=== PATIENT | male | born 1955 | race Caucasian/White ===

== ENCOUNTER → 2022-01-09 09:09 | Outpatient (BNVA) | payer MEDICARE, SELFPAY | PROVIDERS: Family Provider Family Medicine; Visit Provider Family Medicine | DX: M10.9 Gout, unspecified (principal); I10 Essential (primary) hypertension; E78.5 Hyperlipidemia, unspecified; E53.8 Deficiency of other specified B group vitamins; E11.9 Type 2 diabetes mellitus without complications; E03.8 Other specified hypothyroidism | CPT/HCPCS: 80053; 80061; 82607; 83036; 83721; 84443; 84550; 85025 ==

== ENCOUNTER → 2022-05-08 09:05 | Outpatient (BNVA) | payer OTHER, MEDICARE, SELFPAY | PROVIDERS: Family Provider Family Medicine; PCP Family Medicine; Visit Provider Family Medicine | DX: E78.5 Hyperlipidemia, unspecified (principal); M10.9 Gout, unspecified; I10 Essential (primary) hypertension; I25.10 Atherosclerotic heart disease of native coronary artery without angina pectoris; E11.9 Type 2 diabetes mellitus without complications; G62.9 Polyneuropathy, unspecified; L40.9 Psoriasis, unspecified; M19.90 Unspecified osteoarthritis, unspecified site; F32.A Depression, unspecified | CPT/HCPCS: 80053; 83036; 84550; 85025 ==

== ENCOUNTER → 2022-07-04 09:32 | Outpatient (BNVA) | payer OTHER, MEDICARE, SELFPAY | PROVIDERS: Family Provider Family Medicine; PCP Family Medicine; Visit Provider Family Medicine | DX: D75.1 Secondary polycythemia (principal); E78.5 Hyperlipidemia, unspecified; F32.A Depression, unspecified; M10.9 Gout, unspecified; I10 Essential (primary) hypertension; E11.9 Type 2 diabetes mellitus without complications; E61.1 Iron deficiency | CPT/HCPCS: 82728; 83540 ==

== ENCOUNTER → 2022-08-14 09:48 | Day surgery (SDC) | payer OTHER, MEDICARE, SELFPAY ==
[2022-08-14 10:10] VITALS: BMI 25.7
[2022-08-14 10:17] VITALS: BP 154/88; PULSE 82; RESP 18; TEMP 36.4; O2SAT 98
[2022-08-14 10:20] LABS: Hematocrit 46.2 % (42.0-52.0); Hemoglobin 16.5 g/dL (11.7-16.6)
[2022-08-14 10:43] VITALS: BP 144/88; PULSE 67; RESP 18; O2SAT 97
--- NOTE | 2022-08-14 10:46 | PC.NURSE ---
Pt to GI infusions for Therapeutic phlebotomy. Hg 16.5 and Hct 46.2. Phlebotomy drawn as ordered. Pt tolerated well. No reaction noted.
== END ==
PROVIDERS: PCP Family Medicine; Visit Provider Family Medicine
DX: E83.119 Hemochromatosis, unspecified (principal); D75.1 Secondary polycythemia
CPT/HCPCS: 36415; 85014; 85018; 99195

== ENCOUNTER → 2022-08-21 10:40 | Day surgery (SDC) | payer OTHER, MEDICARE, SELFPAY ==
[2022-08-21 10:57] VITALS: BP 158/102; PULSE 72; RESP 18; TEMP 36.1; O2SAT 98
[2022-08-21 10:57] LABS: Hematocrit 43.8 % (42.0-52.0); Hemoglobin 15.5 g/dL (11.7-16.6)
--- NOTE | 2022-08-21 11:25 | PC.NURSE ---
Pt Hg 15.5 and Hct 43.6 today. Therapeutic phlebotomy drawn as ordered. Pt tolerated well.
[2022-08-21 11:43] VITALS: BP 126/80; PULSE 70; RESP 18; O2SAT 98
== END ==
LOC: GILAB 10:41
PROVIDERS: PCP Family Medicine; Visit Provider Family Medicine
DX: E83.119 Hemochromatosis, unspecified (principal)
CPT/HCPCS: 36415; 85014; 85018; 99195

== ENCOUNTER → 2022-08-28 09:44 | Day surgery (SDC) | payer OTHER, MEDICARE, SELFPAY ==
[2022-08-28 10:14] LABS: Hematocrit 42.1 % (42.0-52.0); Hemoglobin 15.1 g/dL (11.7-16.6)
--- NOTE | 2022-08-28 10:20 | PC.NURSE ---
Pt to GI infusions for Therapeutic Phlebotomy. Hg 15.1 and Hct 42.1 today. Phlebotomy drawn as ordered. Pt tolerated well.
[2022-08-28 10:59] VITALS: BP 125/69; PULSE 69; RESP 18; TEMP 36.2; O2SAT 99
== END ==
LOC: GILAB 09:51
PROVIDERS: PCP Family Medicine; Visit Provider Family Medicine
DX: E83.119 Hemochromatosis, unspecified (principal); D75.1 Secondary polycythemia
CPT/HCPCS: 36415; 85014; 85018; 99195

== ENCOUNTER → 2022-09-04 10:47 | Day surgery (SDC) | payer OTHER, MEDICARE, SELFPAY ==
[2022-09-04 11:12] VITALS: BP 132/76; PULSE 59; RESP 18; TEMP 35.8; O2SAT 99
[2022-09-04 11:19] LABS: Hematocrit 40.3 % (42.0-52.0)
--- NOTE | 2022-09-04 11:28 | PC.NURSE ---
Hg 14 and Hct 40. Phlebotomy not drawn due to Hct not being greater than 40 as ordered.
== END ==
LOC: GILAB 10:51
PROVIDERS: PCP Family Medicine; Visit Provider Family Medicine
DX: E83.119 Hemochromatosis, unspecified (principal); D75.1 Secondary polycythemia
CPT/HCPCS: 36415; 85014; 85018

== ENCOUNTER 2022-09-11 10:10 | Outpatient (CLI) | payer OTHER, MEDICARE, SELFPAY ==
--- NOTE | 2022-09-11 10:22 | XR_ITS ---
WS: [id number] XR cervical spine 3V* [id number] REASON FOR EXAM: neck pain FINDINGS: Mild straightening of the normal lordosis of the cervical spine. Normal odontoid and normal cervical vertebral bodies. Intervertebral disc spaces are relatively well-preserved. No significant listhesis. Mild degenerative changes in the facet joints C6-T1. Calcified plaque in both carotid arteries. XR/XR cervical spine 3V* [id number] IMPRESSION: Mild changes of degenerative spondylosis. Bilateral carotid calcified plaque.
== END 2022-09-11 10:11 | disposition home or self-care (01) ==
PROVIDERS: PCP Family Medicine; Visit Provider Family Medicine
DX: D75.1 Secondary polycythemia (principal); E83.119 Hemochromatosis, unspecified; M47.812 Spondylosis without myelopathy or radiculopathy, cervical region; I65.23 Occlusion and stenosis of bilateral carotid arteries
CPT/HCPCS: 72040; 82728; 83540; 85025

== ENCOUNTER → 2023-03-11 10:17 | Outpatient (BNVA) | payer OTHER, MEDICARE, SELFPAY | PROVIDERS: PCP Family Medicine; Visit Provider Family Medicine | DX: N39.0 Urinary tract infection, site not specified (principal); E11.9 Type 2 diabetes mellitus without complications; E83.119 Hemochromatosis, unspecified; G62.9 Polyneuropathy, unspecified; N13.9 Obstructive and reflux uropathy, unspecified; R10.2 Pelvic and perineal pain; R10.9 Unspecified abdominal pain | CPT/HCPCS: 80053; 81000; 83036; 84153; 85025 ==